=== PATIENT | male | born 2000 | race Caucasian/White ===

== ENCOUNTER → 2023-01-12 | Outpatient (CLI) | payer OTHER ==
[2023-01-12 12:19] LABS: BASOPHILS ABSOLUTE AUTO 0.02 K/mm3 (0.00-0.23); BASOPHILS PERCENT AUTO 0 % (0-2); EOSINOPHILS ABSOLUTE AUTO 0.29 K/mm3 (0.00-0.68); EOSINOPHILS PERCENT AUTO 4 % (0-6); Hematocrit 45.5 % (37.0-53.0); Hemoglobin 15.8 g/dL (13.5-17.5); IMMATURE GRAN ABSOLUTE AUTO 0.02 K/mm3 (0.00-0.10); IMMATURE GRAN PERCENT AUTO 0 % (0-1); LYMPHOCYTES ABSOLUTE AUTO 1.25 K/mm3 (0.84-5.20); LYMPHOCYTES PERCENT AUTO 18 % (21-46); MONOCYTES ABSOLUTE AUTO 1.04 K/mm3 (0.16-1.47); MONOCYTES PERCENT AUTO 15 % (4-13); Mean Corpuscular HGB 29.9 pg (26.0-34.0); Mean Corpuscular HGB Conc 34.7 g/dL (31.5-36.5); Mean Corpuscular Volume 86 fL (80-100); Mean Platelet Volume 9.2 fL (9.1-12.4); NEUTROPHILS ABSOLUTE AUTO 4.43 K/mm3 (1.96-9.15); NEUTROPHILS PERCENT AUTO 63 % (41-73); Platelet Count 255 K/mm3 (150-400); RDW Coefficient Variation 12.3 % (11.7-14.2); RDW Standard Deviation 38.6 fL (35.1-46.3); Red Blood Cell Count 5.29 M/mm3 (4.30-5.90); White Blood Cell Count 7.05 K/mm3 (4.00-11.30)
[2023-01-12 12:36] LABS: Albumin, Blood 3.6 g/dL (3.4-5.0); Albumin/Globulin Ratio 0.9 (0.8-1.8); Bilirubin, Total 0.9 mg/dL (0.1-1.0); Bun/Creatinine Ratio 13.1 (12.0-20.0); Calcium, Blood 8.8 mg/dL (8.5-10.1); Creatinine, Blood 0.84 mg/dL (0.60-1.20); Globulin, Blood 4.1 g/dL (2.2-4.0); Potassium, Blood 3.8 mmol/L (3.5-5.5); Total Protein, Blood 7.7 g/dL (6.4-8.2)
== END | disposition home or self-care (01) ==
LOC: LAB SHORT 12:14
PROVIDERS: Emergency Medicine
DX: R11.0 Nausea (principal)
CPT/HCPCS: 80053; 83690; 85025

== ENCOUNTER 2025-01-26 07:15 | Emergency (ER) | payer OTHER ==
[~2025-01-26] VITALS: Ht 180.3 cm; Wt 68.0 kg
[2025-01-26 07:37] VITALS: BP 137/97
[2025-01-26] MEDS ORDERED: AMOCLA875 PO (07:40)
== END 2025-01-26 07:41 | disposition home or self-care (01) ==
LOC: ER 07:15
DX: S61.451A Open bite of right hand, initial encounter (principal); W54.0XXA Bitten by dog, initial encounter; Z59.89 Other problems related to housing and economic circumstances
CPT/HCPCS: 99283